=== PATIENT | male | born 1975 | race Caucasian/White ===

== ENCOUNTER → 2017-05-15 | Outpatient (CLI) | payer OTHER ==
[~2017-05-15] MED LIST: CARB200 PO; MESA250ER PO
[2017-05-16 18:01] LABS: Calcium, Urine 8.9 mg/dL (2.0-17.5); Calcium, Urine Calculation 115.7 mg/24hrs (42.0-353.0)
[2017-05-16 18:47] LABS: Test Name CORFUL
== END | disposition home or self-care (01) ==
LOC: LAB SRC 05:30
PROVIDERS: Physician Assistant
DX: M81.0 Age-related osteoporosis without current pathological fracture (principal)
CPT/HCPCS: 81050; 82340; 82530; 82570

== ENCOUNTER → 2019-10-09 | Outpatient (CLI) | payer OTHER | END | disposition home or self-care (01) | LOC: PLD 14:26 → LAB SHORT 14:26 | DX: S20.4 Other and unspecified superficial injuries of back wall of thorax (principal) | CPT/HCPCS: 88305 ==

== ENCOUNTER → 2021-08-06 | Outpatient (CLI) | payer OTHER ==
[2021-08-07 12:29] LABS: C DIFFICILE DNA NEGATIVE (Negative)
== END ==
LOC: LAB SHORT 11:09
PROVIDERS: Internal Medicine Gastroenterology
DX: K50.919 Crohn's disease, unspecified, with unspecified complications (principal)
CPT/HCPCS: 87493

== ENCOUNTER 2021-08-13 10:32 | Day surgery (SDC) | payer OTHER ==
[~2021-08-13] VITALS: Ht 182.9 cm; Wt 68.5 kg
[2021-08-13] MEDS ORDERED: PROLENSA3 ML OP (11:02)
[2021-08-13] MEDS ORDERED: VALA500 PO (11:02)
--- NOTE | 2021-08-13 12:52 | NUR ---
08/13/21 1252 Magdalena Browne PT RECEIVED NO SEDATION DURING PROCEDURE
== END 2021-08-13 13:21 | disposition home or self-care (01) ==
LOC: ORSCSDS 10:32
PROVIDERS: Internal Medicine Gastroenterology
PROC: 0DBE8ZX Excision of Large Intestine, Via Natural or Artificial Opening Endoscopic, Diagnostic (ICD-10-PCS; principal; 2021-08-13 12:15)
DX: R19.7 Diarrhea, unspecified (principal); K50.90 Crohn's disease, unspecified, without complications; K64.8 Other hemorrhoids; Z90.49 Acquired absence of other specified parts of digestive tract; G40.909 Epilepsy, unspecified, not intractable, without status epilepticus; Z79.899 Other long term (current) drug therapy
CPT/HCPCS: 88305; J2704; J7120

== ENCOUNTER → 2022-03-23 | Outpatient (CLI) | payer OTHER ==
[~2022-03-23] MED LIST changes: +PROLENSA3 ML OP; +VALA500 PO
== END ==
LOC: LAB 06:55 → LAB SHORT 06:55
DX: K50.00 Crohn's disease of small intestine without complications (principal)
CPT/HCPCS: 83993